=== PATIENT | male | born 1950 | race Caucasian/White ===

== ENCOUNTER 2017-12-03 13:50 | Emergency (ER) | payer MEDICARE, OTHER ==
[2017-12-03 14:04] VITALS: BP 134/99
[2017-12-03] MEDS ORDERED: LIDOCAINE 5% (700 MG) TRANSDERMAL ADH..PATCH TP ONE (14:19)
[2017-12-03] MEDS ORDERED: KETOROLAC TROMETHAMINE INJ/PF 30 MG/1 ML SDV IM ONE (14:19)
[2017-12-03] MEDS ORDERED: DEXAMETHASONE SOD PHOS INJ 10 MG/1 ML VIAL IM ONE (14:19)
--- NOTE | 2017-12-03 14:26 | ER Document Report ---
ED Neck/Back Problem - General Chief Complaint: Leg Pain Stated Complaint: LEG PAIN Time Seen by Provider: 12/03/17 14:04 Mode of Arrival: Wheelchair Information source: Patient Notes: 67-year-old male presents to ED for complaint of low back pain that goes across to his hip and down his right leg laterally. He denies any posterior leg tenderness or pain. He states he has had this pain before when helping to move. He was concerned because he is just driven here from [place] and was concerned of blood clots but has no pain in the posterior leg. His cap refills are less than 3 and he has good pedal pulses. Swelling noted to the legs. - HPI Patient complains to provider of: Pain, Lower back - Radiating to the right lateral leg Onset: Yesterday Onset: Gradual - She has had it before but never lasting this long Timing: Still present Quality of pain: Burning Severity: Severe Pain Level: 5 Context: Bending, Turning, Other - Living Recent injury: No Associated symptoms: Like prior neck/back pain, Radiation to leg, Lower back pain. denies: Radiation to arm, Radiation to chest, Sensory loss, Sweaty, Unable to urinate, Upper back pain Exacerbated by: Movement of trunk, Sitting position Relieved by: Nothing Similar symptoms previously: Yes Recently seen / treated by doctor: No - Related Data Allergies/Adverse Reactions: No Known Allergies Allergy (Unverified 12/03/17 13:53) Past Medical History - General Information source: Patient - Social History Smoking Status: Never Smoker Cigarette use (# per day): No Chew tobacco use (# tins/day): No Smoking Education Provided: No Frequency of alcohol use: Rare Drug Abuse: None Lives with: Family Family History: Reviewed & Not Pertinent Patient has suicidal ideation: No Patient has homicidal ideation: No - Past Medical History Cardiac Medical History: Reports: Hx Hypercholesterolemia, Hx Hypertension Pulmonary Medical History: Reports: None EENT Medical History: Reports: None Neurological Medical History: Reports: None Endocrine Medical History: Reports: Hx Diabetes Mellitus Type 2 Renal/ Medical History: Reports: None Malignancy Medical History: Reports None GI Medical History: Reports: None Musculoskeletal Medical History: Reports Hx Musculoskeletal Trauma Skin Medical History: Reports None Psychiatric Medical History: Reports: None Traumatic Medical History: Reports: Hx Fractures - Wrist Infectious Medical History: Reports: None Past Surgical History: Reports: Hx Orthopedic Surgery - Surgery on wrist, Other - Cataracts - Immunizations Immunizations up to date: Yes Review of Systems - Review of Systems Constitutional: No symptoms reported EENT: No symptoms reported Cardiovascular: No symptoms reported Respiratory: No symptoms reported Gastrointestinal: No symptoms reported Genitourinary: No symptoms reported Male Genitourinary: No symptoms reported Musculoskeletal: Back pain - Radiates down right leg, Muscle pain, Muscle stiffness Skin: No symptoms reported Hematologic/Lymphatic: No symptoms reported Neurological/Psychological: No symptoms reported -: Yes All other systems reviewed and negative Physical Exam - Vital signs Vitals: Temp Pulse Resp BP Pulse Ox 97.4 F 77 16 134/99 H 98 12/03/17 14:02 12/03/17 14:02 12/03/17 14:02 12/03/17 14:02 12/03/17 14:02 Interpretation: Normal - General General appearance: Appears well, Alert - HEENT Head: Normocephalic, Atraumatic Eyes: Normal Pupils: PERRL - Respiratory Respiratory status: No respiratory distress Chest status: Nontender Breath sounds: Normal Chest palpation: Normal - Cardiovascular Rhythm: Regular Heart sounds: Normal auscultation Murmur: No - Abdominal Inspection: Normal Distension: No distension Bowel sounds: Normal Tenderness: Nontender Organomegaly: No organomegaly - Back Back: Normal, Tender - Right hip down right leg lateral aspect of leg - Extremities General upper extremity: Normal inspection, Nontender, Normal color, Normal ROM , Normal temperature General lower extremity: Normal inspection, Normal color, Normal ROM, Normal temperature, Normal weight bearing. No: Maxine's sign Hip: Tender - Right leg, Pain with ROM - Pain with movement of hip. No: Abrasion, Deformity, Dislocation, Ecchymosis, Instability, Laceration, Unable to bear weight Thigh: Tender - Down lateral right leg - Neurological Neuro grossly intact: Yes Cognition: Normal Orientation: AAOx4 Tristan Coma Scale Eye Opening: Spontaneous [place] Coma Scale Verbal: Oriented [place] Coma Scale Motor: Obeys Commands [place] Coma Scale Total: 15 Speech: Normal Motor strength normal: LUE, RUE, LLE, RLE Additional motor exam normals: Equal assistant center director Babinski reflex: Normal (flexor plantar) Sensory: Normal Biceps - Reflex grade: 2 = Normal Triceps - Reflex grade: 2 = Normal Brachioradialis - Reflex grade: 2 = Normal Knee - Reflex grade: 2 = Normal Ankle - Reflex grade: 2 = Normal - Psychological Associated symptoms: Normal affect, Normal mood - Skin Skin Temperature: Warm Skin Moisture: Dry Skin Color: Normal Course - Re-evaluation Re-evalutation: 12/03/17 14:31 Treated with Toradol Decadron and Lidoderm patch for his low back pain radiating down the right leg. After performing a Medical Screening Examination , I estimate there is LOW risk for EXPANDING OR RUPTURED ABDOMINAL AORTIC ANEURYSM, CAUDA EQUINA SYNDROME, EPIDURAL MASS LESION, or HERNIATED DISK CAUSING SEVERE SPINAL STENOSIS, thus I consider the discharge disposition reasonable. I have reevaluated this patient multiple times and no significant life threatening changes are noted. The patient and I have discussed the diagnosis and risks, and we agree with discharging home and close follow-up. We also discussed returning to the Emergency Department immediately if new or worsening symptoms occur with the understanding that symptoms and presentations can change. We have discussed the symptoms which are most concerning (e.g., saddle anesthesia, urinary or bowel incontinence or retention, changing or worsening pain) that necessitate immediate return. - Vital Signs Vital signs: Temp Pulse Resp BP Pulse Ox 97.4 F 77 16 134/99 H 98 12/03/17 14:02 12/03/17 14:02 12/03/17 14:02 12/03/17 14:02 12/03/17 14:02 Discharge - Discharge Clinical Impression: Degenerative disc disease, lumbar Low back pain Qualifiers: Chronicity: acute Back pain laterality: bilateral Sciatica presence: with sciatica Sciatica laterality: sciatica of right side Qualified Code(s): M54.41 - Lumbago with sciatica, right side HTN (hypertension) Qualifiers: Hypertension type: unspecified Qualified Code(s): I10 - Essential (primary) hypertension Condition: Stable Disposition: HOME, SELF-CARE Instructions: Use of Ocbj-Cgu-[id number] Ibuprofen ([facility]) Additional Instructions: LOW BACK PAIN: Three out of every four people will have an episode of disabling back pain during their lifetime. Most commonly the pain is due to straining of the muscles and ligaments in the low back. Usual treatment includes: (1) Rest on a firm surface. Avoid lying on your stomach. (2) Ice pack the painful area. After a few days, gentle heat may be used intermittently to relax the area, or ice packs can be continued. (3) Medication may be needed -- muscle relaxers and antiinflammatory medicines are commonly used. (4) As the back improves, exercises are prescribed to strengthen the back and abdominal muscles. Your doctor will advise you on the proper care for your back at each stage in your recovery. You may be better in a few days -- or healing may take several weeks. If new symptoms of a "herniated disc" (radiation of pain, numbness, or tingling down the back of the leg or weakness in the leg) occur, you should be re-examined. Further testing may be necessary. Sciatica Your symptoms suggest "sciatica." The pain of sciatica typically radiates down the leg. Numbness in the foot or calf may also occur. Sciatica is caused by irritation of the sciatic nerve or its branches. The irritation can be due to a herniated disk in the spine, swelling and inflammation in the muscles surrounding the sciatic nerve, or direct injury of the nerve itself. Most cases of sciatica will resolve with medical treatment. Bed rest is usually recommended initially. Surgery is only necessary when the condition will not improve with rest and antiinflammatory medication. Muscle relaxers are often given if muscle soreness is present. A CAT scan of the back may be performed if a herniated disk is suspected. Re-examination is necessary if you develop increasing numbness, localized weakness in the foot or ankle, or if the pain does not respond to rest. MUSCLE RELAXERS: Muscle relaxing medications are usually prescribed for acute muscle spasm or injury to the neck and back. They are often combined with antiinflammatory pain medication for increased relief. You may stop the muscle relaxer when the pain and stiffness have improved. Start the medication again if spasms recur. Muscle relaxers may cause drowsiness, especially with the first dose. Do not operate machinery or drive while under the effects of the medication. Most muscle relaxers last up to 24 hours. Do not combine the medication with alcohol. ICE PACKS: Apply ice packs frequently against the painful area. Many different schedules are recommended, such as "20 minutes on, 20 minutes off" or "one hour ice, two hours rest." If you need to work, you may need to go longer between ice treatments. You should plan to have the area ice packed AT LEAST one fourth of the time. The ice should be applied over the wrap, tape, or splint, or over a layer of cloth -- not directly against the skin. Some ice bags have a built-in cloth and can be put directly on the skin. WARM PACKS: After approximately two days, apply gentle heat (such as a heating pad or hot water bottle) for about 20 to 30 minutes about every two hours -- at least four times daily. Warmth and elevation will help you make a more rapid recovery , and will ease the pain considerably. Do not use HOT heat, and never apply heat for longer than 30 minutes. The continuous heat can invisibly damage skin and muscles -- even when no burn is seen on the surface. Damaged muscles can make you MORE sore. STEROID MEDICATION: You have been given an injection of medicine of the cortisone/steroid class. This medication is used to control inflammation or allergy. It is often continued as a pill for a short period of time, until the acute process subsides. There are usually no side effects from short-term use of cortisone-like medications. Some persons feel an increased sense of well-being and are not sleepy at bedtime. Long-term use of cortisone medications is best avoided, unless required for a severe condition. If your condition does not remit, or relapses after the course of corticosteroid medication, you should consult your physician. Stretching Exercises for the Back The physician has recommended that you begin stretching exercises for your back. These are often used even while the back is painful. However, you should notify the physician if the activities seem to increase your pain. PELVIC TILT: Lie flat on your back with knees bent. Tighten your stomach and buttock muscles so it flattens your lower back against the floor. Hold 10 seconds. Repeat 10 times, twice daily. KNEE RAISE: Lying on the back with knees bent, raise one knee to your chest, then the other. Hold both knees against the chest 10 seconds, then lower one knee at a time. Repeat 10 times, twice daily. PARTIAL TRUNK RAISE: Lie face down, arms at your sides. Keeping your waist on the floor, use your arms raise your chest up. Support yourself on your elbows for 30 seconds. Repeat twice daily, increasing the time to two minutes as you recover. FOLLOW-UP CARE: If you have been referred to a physician for follow-up care, call the physician s office for an appointment as you were instructed or within the next two days. If you experience worsening or a significant change in your symptoms, notify the physician immediately or return to the Emergency Department at any time for re-evaluation. Your x-rays have been discussed with you and the written report of x-rays given to you as well as a CD of the x-rays to follow-up with your primary doctor when you return to [place]. Please take the x-rays and CDs to your primary doctor and to a back specialist that they should refer you to for your back pain that is radiating down her right leg. Prescriptions: Lidocaine [Lidoderm 5% (700 mg) Transdermal Patch] 1 patch TP DAILY #30 adh..patch Methocarbamol [Robaxin 500 mg Tablet] 500 mg PO BID #14 tablet Forms: Elevated Blood Pressure
--- NOTE | 2017-12-03 15:06 | RADIOLOGY REPORT (SQ) ---
EXAM DESCRIPTION: L SPINE WHOLE COMPLETED DATE/TIME: 12/03/2017 2:44 pm REASON FOR STUDY: low back pain radiating down right COMPARISON: None. NUMBER OF VIEWS: Five views including obliques. TECHNIQUE: AP, lateral, oblique, and sacral radiographic images acquired of the lumbar spine. LIMITATIONS: None. FINDINGS: MINERALIZATION: Normal. SEGMENTATION: Normal. No transitional anatomy. ALIGNMENT: There is mild dextrocurvature of the lumbar spine. There is straightening of the lumbar l ordosis. There is mild retrolisthesis of L4 on L5. VERTEBRAE: No compression fracture. DISCS: Degenerative disc disease with osteophytosis at L3-L4, L4-L5 and L5-S1 PE POSTERIOR ELEMENTS: No evidence for pars defect. Facet arthropathy noted at the lower lumbar spine. HARDWARE: None in the spine. PARASPINAL SOFT TISSUES: Normal. PELVIS: SI joints intact. IMPRESSION: No compression fracture at the lumbar spine. Multilevel degenerative changes with mild retrolisthesis of L4 on L5. TECHNICAL DOCUMENTATION: JOB ID: [id number] [employer]- All Rights Reserved Reading location - IP/workstation name: [email or web address]
== END 2017-12-03 16:12 | disposition home or self-care (01) ==
LOC: ER 13:50
DX: M51.16 Intervertebral disc disorders with radiculopathy, lumbar region (principal); I10 Essential (primary) hypertension; E11.9 Type 2 diabetes mellitus without complications; M79.89 Other specified soft tissue disorders
CPT/HCPCS: 99283; 96372; 72110; J1885; J1100